=== PATIENT | female | born 1995 | race Caucasian/White ===

== ENCOUNTER 2022-09-15 11:06 | Observation (INO) | payer OTHER, MEDICAID ==
[~2022-09-15] VITALS: Ht 157.5 cm; Wt 90.7 kg
[2022-09-15] MEDS ORDERED: PNV1TABL76 PO (14:00)
== END 2022-09-15 14:30 | disposition home or self-care (01) ==
LOC: 8 EST LDRP 11:06
PROVIDERS: ADMIT Obstetrics & Gynecology; ATTEND Obstetrics & Gynecology
DX: O62.9 Abnormality of forces of labor, unspecified (principal); O99.891 Other specified diseases and conditions complicating pregnancy; M54.9 Dorsalgia, unspecified; O26.893 Other specified pregnancy related conditions, third trimester; R35.0 Frequency of micturition; Z3A.39 39 weeks gestation of pregnancy
CPT/HCPCS: 59025; 76805; 76818; G0378; 99281